=== PATIENT | female | born 1995 | race Caucasian/White ===

== ENCOUNTER 2024-08-21 10:48 | Day surgery (SDC) | payer OTHER, SELFPAY ==
[2024-08-20 10:04] VITALS: BMI 20.9
[2024-08-21] MEDS: SCOPOLAMINE 1 PATCH TOP (11:05)
[2024-08-21] MEDS: OXYMETAZOLINE NASAL SPRAY 30 ML 2 SPRAYS NASAL (11:07)
[2024-08-21 11:17] VITALS: BP 130/74; PULSE 90; RESP 18; TEMP 36.3; O2SAT 100; BMI 20.9
[2024-08-21] MEDS: ACETAMINOPHEN IV 1,000 MG/100 ML VIAL 400 MG IV (11:25)
[2024-08-21] MEDS: LACTATED RINGERS 1,000 ML 42 ML IV (11:32)
--- NOTE | 2024-08-21 12:39 | PM.PREOP ---
Pre-operative Note Interval Note History & Physical reviewed/Exam performed by Physician: Yes Changes to H&P: No
--- NOTE | 2024-08-21 12:40 | PM.OP.1 ---
Operative Date/Time/Diagnoses Date of procedure: 08/21/24 Time of procedure: 14:11 Pre-op diagnosis: Nasal airway obstruction, septal deviation, inferior turbinate hypertrophy Post-op diagnosis: same Procedure & Clinicians Procedure: 1. Septoplasty 2. Bilateral inferior turbinate reduction via intramural cautery Same procedure as scheduled: Yes Indications: 28 year old with the above diagnoses incompletely managed with medical therapy presents for the above procedure. Following discussion of the material risks benefits complications and alternatives, the patient elected to proceed. Surgeon: Heraclio Hirsch Click Yes if Unassisted: Yes Anesthesia Type: General and Local Operative Notes Findings: 1 to 2+ left primarily anterior septal deviation, convoluted posterior thickened bony septum, primarily to RIGHT. Far posterior flap perforations, small. R>L ITH Estimated Blood Loss (mL): 60 Procedure in detail: Following identification and confirmation of consent as well as preoperative Afrin nasal spray, the patient was brought to the operating room suite and placed in the supine position. General endotracheal anesthesia was administered. I infiltrated the septum widely bilaterally with 1% lidocaine 1 100,000 epinephrine followed by temporary packing with cotton with Afrin and 4% lidocaine. Following sterile prep and drape, the packing was removed and I performed a right navi-transfixion incision, elevated the right mucoperichondrial and mucoperiosteal flap. I disarticulated near the bony/cartilaginous junction and elevated the left mucoperiosteal flap. Deviated portions of the perpendicular plate of the ethmoid and vomer were resected. The residual quadrilateral cartilage was further straightened by trimming it inferiorly as well as reducing the maxillary crest. A 2 mm strip of cartilage paralleling the residual 1 cm dorsal and caudal strut was resected to further straighten the quadrilateral cartilage. The hemitransfixion incision was closed with interrupted 5 0 chromic followed by a running 4 0 plain gut mattress suture to reapproximate the septal flaps. At case completion, 20/1000th of an inch silastic splints were placed bilaterally, sutured anteriorly with a single 4 0 nylon. The head of each inferior turbinate had been previously infiltrated with additional local anesthetic and a 25 gauge spinal needle was used to impale the length of the turbinate, with cautery on a setting of 15 activated on slow withdrawal over 2 passes. The turbinates were then outfractured. The procedure completed, sponge and needle counts were correct and the patient was extubated in the operating room and taken to recovery room in stable condition without known complication. Postoperative care: Nasal saline every hour while awake, Polysporin to the nostrils at all times, begin irrigations t.i.d. beginning pod 1. Humidifier at the bedside blowing on the face. Tylenol alternating with Advil for pain control, oxycodone if necessary for breakthrough pain. Complications: none Post-operative Condition: stable Disposition: same day surgery Plan for aftercare: Nasal saline every hour while awake, begin irrigations t.i.d. tomorrow if desired. Polysporin to the nostrils at all times, Tylenol alternating with Advil for pain control, oxycodone for breakthrough pain. Elevate head of bed, no nose blowing, no straining for 2 weeks. Ice directly under the nose on the upper lip has tolerated 24-48 hours at a minimum. Follow-up in 1 week for nasal splint removal.
--- NOTE | 2024-08-21 13:12 | SUR.OPER ---
Supine on padded OR bed, head on gel donut, arms padded and tucked at sides, legs uncrossed, safety belt at thigh, tape over blanket over lower legs .
[2024-08-21] MEDS: LIDOCAINE 4% SOLN 50 ML 20 ML TOP (13:23)
[2024-08-21] MEDS: LIDOCAINE 1% W/EPI 20 ML INJ (13:23)
[2024-08-21] MEDS: BACITRACIN OINT 0.9 GM PCKT 1 APPLIC TOP (13:24)
[2024-08-21 14:17] VITALS: BP 130/82; PULSE 93; RESP 16; TEMP 36.3; O2SAT 94
[2024-08-21 14:22] VITALS: BP 135/94; PULSE 97; RESP 14; O2SAT 98
[2024-08-21 14:30] VITALS: BP 146/97; PULSE 77; RESP 12; TEMP 36.7; O2SAT 100
[2024-08-21] MEDS: OXYCODONE IR 5 MG TABLET PO (14:32)
[2024-08-21 14:38] VITALS: BP 149/103; PULSE 75; RESP 12; O2SAT 100
== END 2024-08-21 15:20 | disposition home or self-care (01) ==
PROVIDERS: Referring Provider Otolaryngology; Visit Provider Otolaryngology
PROC: (CPT 30520; principal; 2024-08-21 12:15)
DX: J34.2 Deviated nasal septum (principal); J34.89 Other specified disorders of nose and nasal sinuses; J34.3 Hypertrophy of nasal turbinates
CPT/HCPCS: 30520; 30802; J0134; J1100; J2250; J2405; J2704; J3010